=== PATIENT | male | born 1965 | race Caucasian/White ===

== ENCOUNTER → 2024-05-12 08:19 | Outpatient (CLI) | payer BC, SELFPAY ==
[2024-05-12 09:59] LABS: Add Manual Diff / Slide Review NO; Basophils Absolute Auto 100 /uL (0-100); Basophils Percent Auto 0.9 % (0-2); Eosinophils Absolute Auto 300 /uL (0-450); Eosinophils Percent Auto 3.3 % (2-4); Hematocrit 44.1 % (41-53); Hemoglobin 15.3 g/dL (13.5-17.5); Lymphocytes Absolute Auto 2000 /uL (1100-4500); Lymphocytes Percent Auto 25.5 % (25-40); Mean Corpuscular HGB Conc 34.6 % (30-36); Mean Corpuscular Volume 89.4 fL (80-100); Monocytes Absolute Auto 800 /uL (0-900); Monocytes Percent Auto 10.8 % (3-14); Neutrophils Absolute Auto 4700 /uL (1500-7000); Neutrophils Percent Auto 59.5 % (50-75); Platelet Count 233 X10^3/uL (150-400); Red Blood Cell Count 4.93 X10^6/uL (4.5-5.9); Red Cell Distribution Width 13.7 % (11.6-14.8); White Blood Cell Count 7.9 X10^3/uL (4.5-11.0)
[2024-05-12 10:11] LABS: Cholesterol 282 mg/dL (140-199); HDL Cholesterol 44 mg/dL (40-60); LDL Cholesterol Calculated 190 mg/dL (<100); Triglycerides 239 mg/dL (35-150)
[2024-05-12 10:15] LABS: High Sensitivity CRP - Cardiac 1.2 mg/L (1.0-3.0)
[2024-05-12 10:28] LABS: Erythrocyte Sedimentation Rate 4 MM/HR (0-15)
[2024-05-12 10:42] LABS: TSH w/ Reflex to FT4 1.49 uIU/mL (0.47-4.68)
== END ==
PROVIDERS: PCP Physician Assistant; Referring Provider Physician Assistant; Visit Provider Physician Assistant
DX: E78.2 Mixed hyperlipidemia (principal); M79.89 Other specified soft tissue disorders
CPT/HCPCS: 36415; 80061; 84443; 85025; 85651; 86140